=== PATIENT | female | born 1960 | race Caucasian/White ===

== ENCOUNTER 2017-12-25 21:30 | Emergency (ER) | payer OTHER ==
[~2017-12-25] VITALS: Ht 172.7 cm; Wt 95.7 kg
[2017-12-25 22:33] LABS: Urine Bacteria NONE SEEN /hpf (None Seen); Urine Blood Negative /uL (Negative); Urine Specific Gravity 1.016 (1.001-1.035); Urine WBC 1 /hpf (0 - 5)
[2017-12-25 22:36] LABS: Basophils # (auto) 0.1 uL; Eosinophils # (auto) 0 uL; Eosinophils % (auto) 0.3 % (0.0-7.0); Hematocrit 42.1 % (36.0-46.0); Hemoglobin 14.6 g/dL (12.2-16.2); Lymphocytes # (auto) 0.9 uL; Lymphocytes % (auto) 16.9 % (10.0-50.0); Mean Corpuscular Hemoglobin 31.1 pg (28.0-32.0); Mean Corpuscular Hgb Conc. 34.8 g/dL (32.0-36.0); Mean Corpuscular Volume 89.2 fL (80.0-100.0); Monocytes # (auto) 0.7 uL; Monocytes % (auto) 13.4 % (0.0-12.0); Neutrophils # (auto) 3.7 uL; Neutrophils % (auto) 68.4 % (37.0-80.0); Nucleated Red Blood Cells % 0.1 %; Platelet Count (auto) 158 10^3/uL (140-450); Red Blood Cells 4.72 10^6/uL (4.0-5.20); Red Cell Distribution Width 12.5 % (11.8-14.3); White Blood Cell 5.4 10^3/uL (4.4-10.8)
[2017-12-25 22:42] LABS: Albumin 3.6 g/dL (3.4-5.0); Calcium 8.4 mg/dL (8.5-10.1); Potassium 4.2 mmol/L (3.5-5.1)
[2017-12-25 22:44] LABS: BUN/Creatinine Ratio 11.7; Bilirubin, Total 0.8 mg/dL (0.2-1.0); Total Protein 7.3 g/dL (6.4-8.2)
[2017-12-25] MEDS: ONDANSETRON HCL 4 MG/2 ML VIAL ONE (23:50)
[2017-12-25] MEDS: ONDANSETRON HCL 4 MG/2 ML VIAL IV ONE (23:50)
[2017-12-26] MEDS: MORPHINE SULFATE 4 MG/ML SYR/VIAL IV ONE ×2 (01:47→04:19)
[2017-12-26 02:06] LABS: BUN/Creatinine Ratio 11.6; Calcium 7.8 mg/dL (8.5-10.1); Potassium 4.4 mmol/L (3.5-5.1)
[2017-12-26 02:29] LABS: INR 0.94 (0.9-1.15); Partial Thromboplastin Time 30.7 sec (23.78-33.04); Prothrombin Time 10.1 sec (9.27-12.13)
[2017-12-26] MEDS: IOHEXOL 300 MG/ML 100ML BOTTLE IJ ONE (03:20)
[2017-12-26] MEDS: LEVOFLOXACIN 500MG 100 ML IV ONE (05:23)
[2017-12-26 05:24] VITALS: BP 102/55
== END 2017-12-26 05:35 | disposition home or self-care (01) ==
LOC: ER 21:30
DX: K85.90 Acute pancreatitis without necrosis or infection, unspecified (principal); J18.9 Pneumonia, unspecified organism; J44.9 Chronic obstructive pulmonary disease, unspecified; I10 Essential (primary) hypertension; Z88.2 Allergy status to sulfonamides
CPT/HCPCS: 36415; 71045; 74177; 80048; 80053; 81001; 82150; 83605; 83690; 85025; 85610; 85730; 87040; 94761; 96365; 96375; 96376; 99284; J1956; J2270; J2405; J7030; Q9967

== ENCOUNTER 2021-02-18 12:15 | Inpatient (IN) | payer OTHER ==
[~2021-02-18] VITALS: Ht 165.1 cm; Wt 95.0 kg
[2021-02-18] MEDS ORDERED: DexAMETHasone SOD PHOS 10MG/1ML VIAL INJ IV ONE (12:45)
[2021-02-18] MEDS ORDERED: ACETAMINOPHEN 325 MG TAB PO ONE (12:45)
[2021-02-18 14:18] LABS: Basophils # (auto) 0.1 10 ^3/uL (0-0.2); Basophils % (auto) 0.7 % (0.0-2.0); Eosinophils # (auto) 0 10 ^3/uL (0-0.8); Eosinophils % (auto) 0.5 % (0.0-7.0); Hematocrit 39.6 % (36.0-46.0); Hemoglobin 13.9 g/dL (12.2-16.2); Lymphocytes # (auto) 0.9 10 ^3/uL (0.4-5.4); Lymphocytes % (auto) 11.4 % (10.0-50.0); Mean Corpuscular Hemoglobin 30.5 pg (28.0-32.0); Mean Corpuscular Hgb Conc. 35.2 g/dL (32.0-36.0); Mean Corpuscular Volume 86.8 fL (80.0-100.0); Monocytes # (auto) 0.8 10 ^3/uL (0-1.3); Monocytes % (auto) 10.6 % (0.0-12.0); Neutrophils # (auto) 6.1 10 ^3/uL (1.6-8.6); Neutrophils % (auto) 76.8 % (37.0-80.0); Nucleated Red Blood Cells % 0.1 %; Red Blood Cells 4.57 10^6/uL (4.0-5.20); Red Cell Distribution Width 12.4 % (11.8-14.3); White Blood Cell 7.9 10^3/uL (4.4-10.8)
[2021-02-18 14:39] LABS: INR 1.04 (0.9-1.15); Partial Thromboplastin Time 24.5 sec (23.6-33.0)
[2021-02-18 14:51] LABS: Magnesium 2.4 mg/dL (1.6-2.6)
[2021-02-18 14:59] LABS: CRP High Sensitivity 9.74 mg/dL (< 0.3)
[2021-02-18 15:20] LABS: Albumin 2.9 g/dL (3.4-5.0); Calcium 8.8 mg/dL (8.5-10.1); Potassium 4.5 mmol/L (3.5-5.1)
[2021-02-18 15:28] LABS: BUN/Creatinine Ratio 16.5; Bilirubin, Total 0.9 mg/dL (0.2-1.0); Total Protein 7.2 g/dL (6.4-8.2)
[2021-02-18] MEDS ORDERED: diphenhdrAMINE HCL 50 MG/1 ML VL ONE (17:12)
[2021-02-18] MEDS ORDERED: diphenhdrAMINE HCL 50 MG/1 ML VL IV ONE (18:30)
[2021-02-18] MEDS ORDERED: IPRATROPIUM BROM 0.5 MG/2.5ML INH SOL NEB ONE (21:30)
[2021-02-18] MEDS ORDERED: ALBUTEROL SULF 2.5 MG/0.5ML(0.5%) NEB SOLN NEB ONE (21:30)
[2021-02-18] MEDS ORDERED: ALBUTEROL SULF HFA 90MCG INH 200DOSE IN PRN (22:00)
[2021-02-18] MEDS ORDERED: HYDROcodone-ACET 5/325MG TAB PO PRN (22:00)
[2021-02-18] MEDS ORDERED: ACETAMINOPHEN 500 MG TAB PO PRN (22:00)
[2021-02-18] MEDS ORDERED: DOCUSATE SOD 100 MG CAP PO PRN (22:00)
[2021-02-18] MEDS ORDERED: diphenhdrAMINE HCL 50 MG/1 ML VL IV PRN (22:00)
[2021-02-18] MEDS ORDERED: ONDANSETRON HCL 4 MG/2 ML VIAL IV PRN (22:00)
[2021-02-18] MEDS ORDERED: NITROGLYCERIN 0.4 MG SL TAB SL PRN (23:00)
[2021-02-18] MEDS ORDERED: MORPHINE SULFATE INJECTION 2 MG/ML SYRG IV PRN (23:00)
[2021-02-18] MEDS ORDERED: DEXTROSE (50%) 50ML SYRG IV PRN (23:00)
[2021-02-18] MEDS: SODIUM CHLORIDE 0.9% 1,000 ML IV SCH (23:10)
[2021-02-18] MEDS: FAMOTIDINE (10MG/ML) 2ML VL IV SCH (23:11)
[2021-02-18] MEDS: DOXYCYCLINE 100MG/250ML 250 ML IV SCH (23:11)
[2021-02-18] MEDS: ENOXAPARIN SOD 40 MG/0.4 ML SYRINGE SC SCH (23:12)
[2021-02-19 06:20] LABS: Basophils # (auto) 0 10 ^3/uL (0-0.2); Basophils % (auto) 0.3 % (0.0-2.0); Eosinophils # (auto) 0 10 ^3/uL (0-0.8); Hematocrit 37.4 % (36.0-46.0); Hemoglobin 13.3 g/dL (12.2-16.2); Lymphocytes # (auto) 0.5 10 ^3/uL (0.4-5.4); Mean Corpuscular Hgb Conc. 35.5 g/dL (32.0-36.0); Mean Corpuscular Volume 87.3 fL (80.0-100.0); Monocytes # (auto) 0.5 10 ^3/uL (0-1.3); Monocytes % (auto) 10.5 % (0.0-12.0); Neutrophils # (auto) 3.5 10 ^3/uL (1.6-8.6); Neutrophils % (auto) 78.2 % (37.0-80.0); Nucleated Red Blood Cells % 0.2 %; Red Blood Cells 4.29 10^6/uL (4.0-5.20); Red Cell Distribution Width 12.5 % (11.8-14.3); White Blood Cell 4.5 10^3/uL (4.4-10.8)
[2021-02-19 06:25] LABS: Albumin 2.8 g/dL (3.4-5.0); Calcium 8.8 mg/dL (8.5-10.1); Potassium 4.5 mmol/L (3.5-5.1)
[2021-02-19 06:31] LABS: BUN/Creatinine Ratio 24.3; Bilirubin, Total 0.8 mg/dL (0.2-1.0); Total Protein 6.9 g/dL (6.4-8.2)
[2021-02-19] MEDS ORDERED: InsuLIN REG 1unit/0.01ml Soln (100units/ml) SC SCH (07:00)
[2021-02-19] MEDS: ACCU-CHEK COMFORT CURVE STRIP VI SCH ×4 (07:00→21:57)
[2021-02-19] MEDS: ASPirin 81 mg TAB PO SCH (09:27)
[2021-02-19] MEDS: ZINC SULFATE 220mg CAP or TAB PO SCH (09:27)
[2021-02-19] MEDS: FAMOTIDINE (10MG/ML) 2ML VL IV SCH (09:27)
[2021-02-19] MEDS: MULTIPLE VITAMIN TAB PO SCH (09:27)
[2021-02-19] MEDS: ENOXAPARIN SOD 40 MG/0.4 ML SYRINGE SC SCH ×2 (09:28→21:56)
[2021-02-19] MEDS: ASCORBIC ACID 1,000 MG TAB PO SCH (09:28)
[2021-02-19] MEDS: CHOLECALCIFEROL (VITD3) 2,000 UNIT CAP/TAB PO SCH (09:28)
[2021-02-19] MEDS: DOXYCYCLINE 100MG/250ML 250 ML IV SCH (10:00)
[2021-02-19] MEDS ORDERED: DexAMETHasone SOD PHOS 10MG/1ML VIAL INJ IV SCH (10:00)
[2021-02-19] MEDS ORDERED: methylPREDNISolone SOD SUCC 40 MG/ML VL IV ONE (11:45)
[2021-02-19] MEDS ORDERED: DEXTROSE (50%) 50ML SYRG IV PRN (12:00)
[2021-02-19] MEDS: guaiFENesin-DM 100/10mg/5ml SYR PO PRN ×3 (13:29→23:31)
[2021-02-19] MEDS: SODIUM CHLORIDE 0.9% 1,000 ML IV SCH ×2 (14:40→16:06)
[2021-02-19] MEDS: ALBUTEROL SULF 2.5 MG/0.5ML(0.5%) NEB SOLN NEB PRN (17:11)
[2021-02-19] MEDS: IPRATROPIUM BROM 0.5 MG/2.5ML INH SOL NEB PRN (17:11)
[2021-02-19] MEDS: InsuLIN REG 1unit/0.01ml Soln (100units/ml) SC SCH ×2 (17:20→21:59)
[2021-02-19] MEDS: AZITHROMYCIN 250 MG TAB PO SCH (20:05)
[2021-02-19] MEDS: cefTRIAXone 1GM/50ML D5W 50 ML IV SCH (21:55)
[2021-02-19] MEDS: methylPREDNISolone SOD SUCC 40 MG/ML VL IV SCH (21:56)
[2021-02-19 22:00] VITALS: BP 139/79
[2021-02-19 22:07] VITALS: BP 139/79
[2021-02-19] MEDS ORDERED: LISI-275 PO (22:42)
[2021-02-19] MEDS ORDERED: DIPH25CA66 PO (22:42)
[2021-02-19] MEDS ORDERED: BENZ100C97 PO (22:42)
[2021-02-19] MEDS ORDERED: ESCI-34 PO (22:42)
[2021-02-19] MEDS ORDERED: ALBU108A5 INH (22:42)
[2021-02-19] MEDS ORDERED: ONDA-144 PO (22:42)
[2021-02-19] MEDS ORDERED: SCOP1DIS9 TOP (22:42)
[2021-02-19] MEDS ORDERED: CICL160A2 INH (22:42)
[2021-02-19] MEDS ORDERED: FAMO40TA7 PO (22:42)
[2021-02-19] MEDS ORDERED: NUTR-340 OR (22:42)
[2021-02-19] MEDS ORDERED: CETI10TA2 PO (22:42)
[2021-02-19 22:47] VITALS: BP 139/79
[2021-02-19 23:32] VITALS: BP 139/79
[2021-02-20 05:00] VITALS: BP 120/72
[2021-02-20] MEDS: InsuLIN REG 1unit/0.01ml Soln (100units/ml) SC SCH ×4 (06:34→22:17)
[2021-02-20] MEDS: ACCU-CHEK COMFORT CURVE STRIP VI SCH ×4 (06:35→22:18)
[2021-02-20] MEDS: cefTRIAXone 1GM/50ML D5W 50 ML IV SCH (08:50)
[2021-02-20] MEDS: ASPirin 81 mg TAB PO SCH (08:51)
[2021-02-20] MEDS: ZINC SULFATE 220mg CAP or TAB PO SCH (08:51)
[2021-02-20] MEDS: PANTOPRAZOLE 40 MG TAB PO SCH (08:51)
[2021-02-20] MEDS: MULTIPLE VITAMIN TAB PO SCH (08:51)
[2021-02-20] MEDS: methylPREDNISolone SOD SUCC 40 MG/ML VL IV SCH ×2 (08:51→22:02)
[2021-02-20] MEDS: AZITHROMYCIN 250 MG TAB PO SCH (08:52)
[2021-02-20] MEDS: ENOXAPARIN SOD 40 MG/0.4 ML SYRINGE SC SCH ×2 (08:52→22:18)
[2021-02-20] MEDS: ASCORBIC ACID 1,000 MG TAB PO SCH (08:52)
[2021-02-20] MEDS: CHOLECALCIFEROL (VITD3) 2,000 UNIT CAP/TAB PO SCH (08:52)
[2021-02-20 09:00] VITALS: BP 138/72
[2021-02-20 13:00] VITALS: BP 130/80
[2021-02-20] MEDS: guaiFENesin-DM 100/10mg/5ml SYR PO PRN ×2 (17:33→22:27)
[2021-02-20 21:53] VITALS: BP 119/68
[2021-02-20] MEDS: IPRATROPIUM BROM 0.5 MG/2.5ML INH SOL NEB PRN (22:52)
[2021-02-20] MEDS: ALBUTEROL SULF 2.5 MG/0.5ML(0.5%) NEB SOLN NEB PRN (22:52)
[2021-02-21 04:40] VITALS: BP 109/61
[2021-02-21] MEDS: ACCU-CHEK COMFORT CURVE STRIP VI SCH ×4 (06:31→21:53)
[2021-02-21] MEDS: InsuLIN REG 1unit/0.01ml Soln (100units/ml) SC SCH ×4 (06:31→21:54)
[2021-02-21 08:04] LABS: BUN/Creatinine Ratio 30.6; Calcium 8.7 mg/dL (8.5-10.1); Magnesium 2.7 mg/dL (1.6-2.6); Potassium 4.6 mmol/L (3.5-5.1)
[2021-02-21 08:09] LABS: Basophils # (auto) 0 10 ^3/uL (0-0.2); Basophils % (auto) 0.2 % (0.0-2.0); Eosinophils # (auto) 0 10 ^3/uL (0-0.8); Hematocrit 36.2 % (36.0-46.0); Hemoglobin 12.5 g/dL (12.2-16.2); Lymphocytes # (auto) 0.6 10 ^3/uL (0.4-5.4); Lymphocytes % (auto) 5.8 % (10.0-50.0); Mean Corpuscular Hemoglobin 30.1 pg (28.0-32.0); Mean Corpuscular Hgb Conc. 34.7 g/dL (32.0-36.0); Mean Corpuscular Volume 86.7 fL (80.0-100.0); Monocytes # (auto) 0.5 10 ^3/uL (0-1.3); Monocytes % (auto) 5.3 % (0.0-12.0); Neutrophils # (auto) 8.6 10 ^3/uL (1.6-8.6); Neutrophils % (auto) 88.7 % (37.0-80.0); Red Blood Cells 4.17 10^6/uL (4.0-5.20); Red Cell Distribution Width 12.2 % (11.8-14.3); White Blood Cell 9.7 10^3/uL (4.4-10.8)
[2021-02-21 09:00] VITALS: BP 124/72
[2021-02-21] MEDS: cefTRIAXone 1GM/50ML D5W 50 ML IV SCH (09:27)
[2021-02-21] MEDS: methylPREDNISolone SOD SUCC 40 MG/ML VL IV SCH ×2 (09:27→21:50)
[2021-02-21] MEDS: ASPirin 81 mg TAB PO SCH (09:35)
[2021-02-21] MEDS: MULTIPLE VITAMIN TAB PO SCH (09:35)
[2021-02-21] MEDS: ZINC SULFATE 220mg CAP or TAB PO SCH (09:35)
[2021-02-21] MEDS: PANTOPRAZOLE 40 MG TAB PO SCH (09:35)
[2021-02-21] MEDS: AZITHROMYCIN 250 MG TAB PO SCH (09:36)
[2021-02-21] MEDS: ASCORBIC ACID 1,000 MG TAB PO SCH (09:36)
[2021-02-21] MEDS: IPRATROPIUM BROM 0.5 MG/2.5ML INH SOL NEB PRN ×2 (09:36→23:51)
[2021-02-21] MEDS: ALBUTEROL SULF 2.5 MG/0.5ML(0.5%) NEB SOLN NEB PRN ×2 (09:36→23:52)
[2021-02-21] MEDS: CHOLECALCIFEROL (VITD3) 2,000 UNIT CAP/TAB PO SCH (09:36)
[2021-02-21] MEDS: ENOXAPARIN SOD 40 MG/0.4 ML SYRINGE SC SCH ×2 (09:36→21:53)
[2021-02-21 13:00] VITALS: BP 121/69
[2021-02-21] MEDS ORDERED: THROAT LOZENGES(CEPASTAT) MT PRN (15:15)
[2021-02-21 16:39] VITALS: BP 127/69
[2021-02-21] MEDS: SODIUM CHLORIDE 0.9% 1,000 ML IV SCH ×2 (16:40)
[2021-02-21] MEDS: NYSTATIN (MOUTH-THROAT) 500,000 UNITS/5 ML SUSP MT SCH ×3 (17:28→21:56)
[2021-02-21] MEDS: ATORVASTATIN 20 MG TAB PO SCH (21:52)
[2021-02-21] MEDS: guaiFENesin-DM 100/10mg/5ml SYR PO PRN (21:55)
[2021-02-21 22:00] VITALS: BP 115/57
[2021-02-22 05:00] VITALS: BP 116/66
[2021-02-22] MEDS: NYSTATIN (MOUTH-THROAT) 500,000 UNITS/5 ML SUSP MT SCH ×4 (06:28→21:30)
[2021-02-22] MEDS: ACCU-CHEK COMFORT CURVE STRIP VI SCH ×4 (06:29→21:36)
[2021-02-22] MEDS: InsuLIN REG 1unit/0.01ml Soln (100units/ml) SC SCH ×4 (06:30→21:38)
[2021-02-22 06:51] LABS: Calcium 9.1 mg/dL (8.5-10.1); Potassium 4.6 mmol/L (3.5-5.1)
[2021-02-22 06:57] LABS: Albumin 2.6 g/dL (3.4-5.0); BUN/Creatinine Ratio 26.6; Basophils # (auto) 0 10 ^3/uL (0-0.2); Basophils % (auto) 0.1 % (0.0-2.0); Bilirubin, Total 0.7 mg/dL (0.2-1.0); Eosinophils # (auto) 0 10 ^3/uL (0-0.8); Hematocrit 36.8 % (36.0-46.0); Hemoglobin 12.7 g/dL (12.2-16.2); Lymphocytes # (auto) 0.6 10 ^3/uL (0.4-5.4); Lymphocytes % (auto) 5.3 % (10.0-50.0); Mean Corpuscular Hgb Conc. 34.5 g/dL (32.0-36.0); Mean Corpuscular Volume 86.8 fL (80.0-100.0); Monocytes # (auto) 0.6 10 ^3/uL (0-1.3); Neutrophils # (auto) 10.2 10 ^3/uL (1.6-8.6); Neutrophils % (auto) 89.6 % (37.0-80.0); Red Blood Cells 4.24 10^6/uL (4.0-5.20); Total Protein 6.2 g/dL (6.4-8.2); White Blood Cell 11.4 10^3/uL (4.4-10.8)
[2021-02-22] MEDS: cefTRIAXone 1GM/50ML D5W 50 ML IV SCH (08:54)
[2021-02-22 09:00] VITALS: BP 139/75
[2021-02-22] MEDS: ASPirin 81 mg TAB PO SCH (09:11)
[2021-02-22] MEDS: methylPREDNISolone SOD SUCC 40 MG/ML VL IV SCH (09:11)
[2021-02-22] MEDS: ZINC SULFATE 220mg CAP or TAB PO SCH (09:12)
[2021-02-22] MEDS: MULTIPLE VITAMIN TAB PO SCH (09:13)
[2021-02-22] MEDS: ASCORBIC ACID 1,000 MG TAB PO SCH (09:13)
[2021-02-22] MEDS: CITALOPRAM HYDROBR 20 MG TAB PO SCH (09:13)
[2021-02-22] MEDS: PANTOPRAZOLE 40 MG TAB PO SCH (09:13)
[2021-02-22] MEDS: CHOLECALCIFEROL (VITD3) 2,000 UNIT CAP/TAB PO SCH (09:14)
[2021-02-22] MEDS: AZITHROMYCIN 250 MG TAB PO SCH (09:15)
[2021-02-22] MEDS: ENOXAPARIN SOD 40 MG/0.4 ML SYRINGE SC SCH ×2 (09:16→21:31)
[2021-02-22] MEDS: guaiFENesin-DM 100/10mg/5ml SYR PO PRN ×2 (09:17→18:10)
[2021-02-22] MEDS: SODIUM CHLORIDE 0.9% 1,000 ML IV SCH (09:20)
[2021-02-22 13:00] VITALS: BP 131/86
[2021-02-22 17:00] VITALS: BP 112/72
[2021-02-22] MEDS: ALBUTEROL SULF 2.5 MG/0.5ML(0.5%) NEB SOLN NEB PRN (20:39)
[2021-02-22] MEDS: IPRATROPIUM BROM 0.5 MG/2.5ML INH SOL NEB PRN (20:39)
[2021-02-22] MEDS: ATORVASTATIN 20 MG TAB PO SCH (21:31)
[2021-02-22 22:00] VITALS: BP 134/76
[2021-02-23] MEDS: IPRATROPIUM BROM 0.5 MG/2.5ML INH SOL NEB PRN (01:00)
[2021-02-23] MEDS: ALBUTEROL SULF 2.5 MG/0.5ML(0.5%) NEB SOLN NEB PRN (01:00)
[2021-02-23 05:00] VITALS: BP 107/68
[2021-02-23] MEDS: NYSTATIN (MOUTH-THROAT) 500,000 UNITS/5 ML SUSP MT SCH ×2 (06:15→11:06)
[2021-02-23] MEDS: ACCU-CHEK COMFORT CURVE STRIP VI SCH ×2 (06:22→11:06)
[2021-02-23] MEDS: InsuLIN REG 1unit/0.01ml Soln (100units/ml) SC SCH ×2 (06:22→11:09)
[2021-02-23] MEDS: guaiFENesin-DM 100/10mg/5ml SYR PO PRN (06:25)
[2021-02-23] MEDS: cefTRIAXone 1GM/50ML D5W 50 ML IV SCH (08:06)
[2021-02-23] MEDS: ASPirin 81 mg TAB PO SCH (08:07)
[2021-02-23] MEDS: MULTIPLE VITAMIN TAB PO SCH (08:07)
[2021-02-23] MEDS: PANTOPRAZOLE 40 MG TAB PO SCH (08:07)
[2021-02-23] MEDS: ZINC SULFATE 220mg CAP or TAB PO SCH (08:07)
[2021-02-23] MEDS: CITALOPRAM HYDROBR 20 MG TAB PO SCH (08:07)
[2021-02-23] MEDS: AZITHROMYCIN 250 MG TAB PO SCH (08:08)
[2021-02-23] MEDS: CHOLECALCIFEROL (VITD3) 2,000 UNIT CAP/TAB PO SCH (08:08)
[2021-02-23] MEDS: ASCORBIC ACID 1,000 MG TAB PO SCH (08:08)
[2021-02-23] MEDS: ENOXAPARIN SOD 40 MG/0.4 ML SYRINGE SC SCH (08:08)
[2021-02-23 08:43] VITALS: BP 130/65
[2021-02-23] MEDS ORDERED: DexAMETHasone 4 MG TAB PO SCH (10:00)
[2021-02-23] MEDS ORDERED: ALBUTEROL SULF HFA 90MCG INH 200DOSE IN PRN (11:15)
[2021-02-23 13:00] VITALS: BP 129/68
[2021-02-23] MEDS ORDERED: ASPI1CHW15 PO (13:11)
[2021-02-23] MEDS ORDERED: CHOL1CAP47 PO (13:11)
[2021-02-23] MEDS ORDERED: ZINC220C10 PO (13:13)
[2021-02-23] MEDS ORDERED: ASCO500T11 PO (13:13)
[2021-02-23] MEDS ORDERED: NYS5LQ MT (13:14)
[2021-02-23] MEDS ORDERED: METF-370 PO (14:46)
[2021-02-23] MEDS ORDERED: DEX4T PO (14:46)
[2021-02-23 14:55] VITALS: BP 129/68
[2021-02-23] MEDS ORDERED: BUDESONIDE (INHALATION) 180 MCG IH IN SCH (22:00)
== END 2021-02-23 17:00 | disposition home or self-care (01) | DRG 177 ==
LOC: EDBD 12:15 → ER 12:15 → TELE 22:53 → TELE-EAST 02-19 19:48
PROVIDERS: ADMIT Nurse Practitioner Family; ATTEND Internal Medicine Geriatric Medicine
DX: U07.1 COVID-19 (principal); J96.21 Acute and chronic respiratory failure with hypoxia; J12.82 Pneumonia due to coronavirus disease 2019; J98.11 Atelectasis; B37.0 Candidal stomatitis; J44.0 Chronic obstructive pulmonary disease with (acute) lower respiratory infection; E11.65 Type 2 diabetes mellitus with hyperglycemia; Z91.19 Patient's noncompliance with other medical treatment and regimen; Z87.891 Personal history of nicotine dependence; Z88.5 Allergy status to narcotic agent; Z88.2 Allergy status to sulfonamides; Z88.1 Allergy status to other antibiotic agents
CPT/HCPCS: 36415; 71045; 71275; 80048; 80053; 82728; 82962; 83036; 83615; 83735; 83880; 84484; 85025; 85379; 85610; 85730; 86141; 87426; 93005; 94640; 96365; 96375; G0378; J0696; J1100; J1815; J2405; J3490